=== PATIENT | male | born 1980 | race Caucasian/White ===

== ENCOUNTER 2020-07-28 01:32 | Inpatient (IN) | payer OTHER ==
[~2020-07-28] VITALS: Ht 177.8 cm; Wt 99.8 kg
[~2020-07-28 01:32] MED LIST: BANOPHEN ANTI-I28 GM TOP; HYDHCL25 PO
[2020-07-28 02:01] LABS: BASOPHILS ABSOLUTE AUTO 0.02 K/mm3 (0.00-0.23); BASOPHILS PERCENT AUTO 0 % (0-2); EOSINOPHILS ABSOLUTE AUTO 0.03 K/mm3 (0.00-0.68); EOSINOPHILS PERCENT AUTO 0 % (0-6); Hematocrit 46.8 % (37.0-53.0); Hemoglobin 16.1 g/dL (13.5-17.5); IMMATURE GRAN ABSOLUTE AUTO 0.09 K/mm3 (0.00-0.10); IMMATURE GRAN PERCENT AUTO 1 % (0-1); LYMPHOCYTES ABSOLUTE AUTO 0.73 K/mm3 (0.84-5.20); LYMPHOCYTES PERCENT AUTO 7 % (21-46); MONOCYTES ABSOLUTE AUTO 0.58 K/mm3 (0.16-1.47); MONOCYTES PERCENT AUTO 5 % (4-13); Mean Corpuscular HGB 30.6 pg (26.0-34.0); Mean Corpuscular HGB Conc 34.4 g/dL (31.5-36.5); Mean Corpuscular Volume 89 fL (80-100); Mean Platelet Volume 9.2 fL (9.1-12.4); NEUTROPHILS ABSOLUTE AUTO 9.61 K/mm3 (1.96-9.15); NEUTROPHILS PERCENT AUTO 87 % (41-73); Platelet Count 157 K/mm3 (150-400); RDW Standard Deviation 39.7 fL (35.1-46.3); Red Blood Cell Count 5.27 M/mm3 (4.30-5.90); White Blood Cell Count 11.06 K/mm3 (4.00-11.30)
[2020-07-28] MEDS ORDERED: QUETIAPINE FUMA25 MG PO (02:07)
[2020-07-28] MEDS ORDERED: Methocarbamol750 MG PO (02:07)
[2020-07-28] MEDS ORDERED: DIAZEPAM10 MG PO (02:07)
[2020-07-28] MEDS ORDERED: IMIPRAMINE PAMO75 MG PO (02:08)
[2020-07-28] MEDS ORDERED: SILDENAFIL CIT100 MG PO (02:08)
[2020-07-28] MEDS ORDERED: ZIPRASIDONE HCL PO (02:09)
[2020-07-28] MEDS ORDERED: Diclofenac Sodi50 MG (02:09)
[2020-07-28] MEDS ORDERED: Amphetamine Sal30 MG PO (02:09)
[2020-07-28] MEDS ORDERED: DEPO-TESTO200 MG/11 IM (02:09)
[2020-07-28 02:19] LABS: Alanine Aminotransfer (ALT/SGP 82 U/L (12-78); Albumin, Blood 3.5 g/dL (3.4-5.0); Albumin/Globulin Ratio 0.9 (0.8-1.8); Alk Phos 76 U/L (50-136); Anion Gap 7 mmol/L (6-16); Aspartate Aminotrans (AST/SGOT 40 U/L (12-37); Bilirubin, Total 0.3 mg/dL (0.1-1.0); Blood Urea Nitrogen 16 mg/dL (8-24); Bun/Creatinine Ratio 17.9 (12.0-20.0); CO2, Blood 25 mmol/L (21-32); Calcium, Blood 8.4 mg/dL (8.5-10.1); Chloride, Blood 107 mmol/L (98-108); Creatinine, Blood 0.89 mg/dL (0.60-1.20); Globulin, Blood 3.7 g/dL (2.2-4.0); Glomerular Filtration Rate >60 (60-); Glucose, Blood 145 mg/dL (70-99); Potassium, Blood 3.7 mmol/L (3.5-5.5); Sodium, Blood 139 mmol/L (136-145); Total Protein, Blood 7.2 g/dL (6.4-8.2)
[2020-07-28 02:39] LABS: Influenza A, PCR Negative (NEGATIVE); Influenza B, PCR Negative (NEGATIVE); Resp Syncytial Virus, PCR Negative (NEGATIVE); SARS-Cov-2 (COVID-19) PCR, MMC Negative (NEGATIVE)
[2020-07-28 03:02] LABS: Source, Urine Clean Catch
[2020-07-28 03:04] LABS: Bilirubin, Urine Neg (Neg); Blood, Urine Neg (Neg); Glucose Qualitative, Urine 1+ (Neg); Ketones, Urine 1+ (Neg); Leukocyte Esterase, Urine 1+ (Neg); Nitrite, Urine Neg (Neg); Protein, Urine Neg (Neg); Urobilinogen, Urine NORM (Normal)
[2020-07-28 03:10] LABS: Appearance, Urine Clear (Clear); Color, Urine Yellow (P-Yellow)
[2020-07-28 03:11] LABS: Bacteria Few /hpf; Red Blood Cells, Urine 0-2 /hpf (0-2); Squamous Epithelial Cells Rare /hpf (Few)
== END 2020-07-28 08:19 | disposition left against medical advice (07) | DRG 871 ==
LOC: ER 01:32 → ERHOLD 04:37
PROVIDERS: Emergency Medicine; ADMIT Internal Medicine
DX: A41.9 Sepsis, unspecified organism (principal); J18.9 Pneumonia, unspecified organism; J96.01 Acute respiratory failure with hypoxia; Z20.822 Contact with and (suspected) exposure to COVID-19; Z53.29 Procedure and treatment not carried out because of patient's decision for other reasons
CPT/HCPCS: 0241U; 36415; 71045; 80053; 81001; 83605; 83880; 85025; 87040; 87086; 93005; 93010; 96361; 96374; 96375; 99285-25; A9270; J0456; J0696; J7030; J7050